=== PATIENT | female | born 2000 | race Caucasian/White ===

== ENCOUNTER 2024-09-09 23:35 | Emergency (ER) | payer SELFPAY ==
[~2024-09-09] VITALS: Ht 157.5 cm; Wt 69.0 kg
[2024-09-09 23:38] VITALS: O2SAT 97
[2024-09-10 00:14] VITALS: TEMP 36.50292
[2024-09-10 02:03] VITALS: BP 103/57; PULSE 72; RESP 17; O2SAT 95
== END 2024-09-10 02:26 | disposition home or self-care (01) ==
LOC: ER 23:35
DX: F10.129 Alcohol abuse with intoxication, unspecified (principal); Z68.27 Body mass index [BMI] 27.0-27.9, adult; Y90.9 Presence of alcohol in blood, level not specified
CPT/HCPCS: 99283; Z7610 ×2